=== PATIENT | male | born 1990 | race Caucasian/White ===

== ENCOUNTER 2017-01-12 22:08 | Inpatient (IN) | payer SELFPAY ==
[~2017-01-12] VITALS: Ht 172.7 cm; Wt 90.8 kg
[2017-01-12 21:50] VITALS: O2SAT 94
[2017-01-12 22:10] VITALS: O2SAT 100; O2SAT 92
[2017-01-12] MEDS ORDERED: NALOXONE HCL 2 MG/2 ML VIAL ONE ×2 (22:10→22:40)
[2017-01-12] MEDS ORDERED: ETOMIDATE 20 MG/10 ML VIAL ONE (22:11)
[2017-01-12] MEDS ORDERED: ROCURONIUM INJ 50 MG/5 ML VIAL ONE ×2 (22:11→22:17)
[2017-01-12 22:20] VITALS: BP 162/72; PULSE 154; RESP 3; TEMP 98.7; O2SAT 30
[2017-01-12 22:28] VITALS: PULSE 125; RESP 12; O2SAT 90
[2017-01-12] MEDS ORDERED: NALOXONE HCL 0.4 MG/ML AMP ONE (22:40)
[2017-01-12 22:50] VITALS: O2SAT 94
[2017-01-12] MEDS ORDERED: SODIUM CHLOR 0.9% 1000 ML INJ 1,000 ML IV SCH (23:01)
--- NOTE | 2017-01-12 23:04 | RADRPT ---
EXAM DATE/TIME: 01/12/2017 22:45 [place] COMPARISON: No previous studies available for comparison. INDICATIONS : Short of breath. MEDICAL HISTORY : None. SURGICAL HISTORY : None. ENCOUNTER: Initial ACUITY: 1 day PAIN SCORE: Non-responsive. LOCATION: Bilateral chest FINDINGS: A single view of the chest demonstrates the lungs to be symmetrically aerated without evidence of mas s, infiltrate or effusion. The cardiomediastinal contours are unremarkable. Osseous structures are intact. CONCLUSION: 1. No acute findings. Incidental azygos fissure. Ac Jara MD on January 12, 2017 at 23:02 Board Certified Radiologist. This report was verified electronically.
[2017-01-12 23:08] LABS: AUTOMATED NEUTROPHIL # 13.7 TH/MM3 (1.8-7.7); BASOPHIL # 0.1 TH/MM3 (0-0.2); BASOPHIL % 0.2 % (0.0-2.0); EOSINOPHIL # 0.2 TH/MM3 (0-0.4); EOSINOPHIL % 0.6 % (0.0-4.0); HEMATOCRIT 47.9 % (39.0-51.0); LYMPH % 38.8 % (9.0-44.0); LYMPHOCYTE # 10.3 TH/MM3 (1.0-4.8); MEAN CELL VOLUME 94.9 FL (80.0-100.0); MEAN CORPUSCULAR HEMOGLOBIN 32.6 PG (27.0-34.0); MEAN CORPUSCULAR HGB CONC 34.4 % (32.0-36.0); NEUT % 51.4 % (16.0-70.0); PLATELET COUNT 452 TH/MM3 (150-450); RED BLOOD COUNT 5.05 MIL/MM3 (4.50-5.90); WHITE BLOOD COUNT 26.6 TH/MM3 (4.0-11.0)
[2017-01-12 23:09] LABS: HEMO FLAGS AUTO DIFF
[2017-01-12] MEDS ORDERED: PANTOPRAZOLE INJ 80 MG in SODIUM CHLORIDE 0.9% INJ 100 ML IV SCH (23:15)
[2017-01-12] MEDS ORDERED: ONDANSETRON HCL 4 MG/2 ML VIAL IVP ONE (23:15)
[2017-01-12] MEDS ORDERED: PANTOPRAZOLE INJ 80 MG in SODIUM CHLORIDE 0.9% INJ 35 ML IV ONE (23:15)
[2017-01-12 23:17] LABS: APTT (PATIENT) 25.4 SEC (24.3-30.1); INTERNATIONAL NORMALIZED RATIO 1.1 RATIO; PROTHROMBIN TIME - PATIENT 11.8 SEC (9.8-11.6)
[2017-01-12 23:25] LABS: ANION GAP 12 MEQ/L (5-15); BICARBONATE 27.7 MEQ/L (21.0-32.0); BLOOD UREA NITROGEN 11 MG/DL (7-18); CHLORIDE 100 MEQ/L (98-107); GLOMERULAR FILTRATION RATE 35 ML/MIN (>89); POTASSIUM 3.5 MEQ/L (3.5-5.1); SODIUM (NA) 140 MEQ/L (136-145)
[2017-01-12 23:27] LABS: BLOOD GAS BASE EXCESS 0.7 mmol/L (-2-2); BLOOD GAS CARBOXYHEMOGLOBIN 4.5 % (0-4); BLOOD GAS HCO3 26 mmol/L (22-26); BLOOD GAS METHEMOGLOBIN 0.6 % (0-2); BLOOD GAS O2 HGB SATURATION 87 % (90-100); BLOOD GAS OXYGEN CONTENT 19.5 Vol % (12.0-20.0); BLOOD GAS PCO2 47 mmHg (38-42); BLOOD GAS PO2 63 mmHG (61-120); BLOOD GAS TOTAL HGB 15.9 G/DL (12.0-16.0); TEMP CORR TO 98.6
[2017-01-12 23:28] LABS: CRITICAL VALUE YES; DRAW SITE RT RADIAL; LITER FLOW 2 L/M; NUMBER OF ARTERIAL PUNCTURES 1; OXYGEN DEVICE NASAL CANNULA; STAT YES; ULNAR PULSE PRESENT
--- NOTE | 2017-01-12 23:36 | PD ---
HPI Chief Complaint: OD/ Ingestion Time Seen by Provider: 22:24 Travel History International Travel<30 days: No Contact w/Intl Traveler<30days: No Traveled to known affect area: No History of Present Illness HPI Young male was dropped off with agonal breathing and unresponsive. As we were preparing to intubate the patient, we gave narcan 2mg IV and pt responded and woke up. Pt admits to injecting heroin and does not know how much he did. Denies any complaints currently but states he has been sick recently. Pt found to vomit dark vomitus and it was hemaprompt positive. [facility] Past Medical History Medical History: Denies Significant Hx Diminished Hearing: No Past Surgical History Surgical History: No Previous Surgery Social History Alcohol Use: No Tobacco Use: Yes Substance Use: Yes (HEROIN) Allergies-Medications (Allergen,Severity, Reaction): Coded Allergies: No Known Allergies (Unverified , 01/12/17) Review of Systems Except as stated in HPI: all other systems reviewed are Neg Physical Exam Narrative GENERAL: Young male initially cyanotic and hypoxic but woke up with narcan. SKIN: Focused skin assessment warm/dry. HEAD: Atraumatic. Normocephalic. EYES: Pupils equal and round. EOMI. No scleral icterus. No injection or drainage. ENT: No nasal bleeding or discharge. Mucous membranes pink and moist. NECK: Trachea midline. No JVD. CARDIOVASCULAR: Regular rate and rhythm. No murmur appreciated. RESPIRATORY: No accessory muscle use. Clear to auscultation. Breath sounds equal bilaterally. GASTROINTESTINAL: Abdomen soft, non-tender, nondistended. No rebound tenderness or guarding. MUSCULOSKELETAL: No obvious deformities. No clubbing. No cyanosis. No edema. NEUROLOGICAL: Awake and alert. No obvious cranial nerve deficits. Motor grossly within normal limits. Normal speech. PSYCHIATRIC: Appropriate mood and affect; insight and judgment normal. Data Data Last Documented VS Vital Signs Date Time Temp Pulse Resp B/P Pulse Ox O2 Delivery O2 Flow Rate FiO2 01/13/17 01:20 102 24 118/60 95 Nasal Cannula 2 01/12/17 22:20 98.7 01/12/17 22:10 100 Orders Naloxone Inj (Narcan Inj) (01/12/17 22:10) Etomidate Inj (Amidate Inj) (01/12/17 22:11) Rocuronium Inj (Zemuron Inj) (01/12/17 22:11) Rocuronium Inj (Zemuron Inj) (01/12/17 22:17) Chest, Single Ap (01/12/17 ) Naloxone Inj (Narcan Inj) (01/12/17 22:40) Naloxone Inj (Narcan Inj) (01/12/17 22:40) Basic Metabolic Panel (Bmp) (01/12/17 22:43) Complete Blood Count With Diff (01/12/17 22:43) Lipase (01/12/17 22:43) Prothrombin Time / Inr (Pt) (01/12/17 22:43) Act Partial Throm Time (Ptt) (01/12/17 22:43) Alcohol (Ethanol) (01/12/17 22:43) Type And Screen (01/12/17 22:43) Ecg Monitoring (01/12/17 22:43) Iv Access Insert/Monitor (01/12/17 22:43) Oximetry (01/12/17 22:43) Ondansetron Inj (Zofran Inj) (01/12/17 23:15) Sodium Chlor 0.9% 1000 Ml Inj (Ns 1000 M (01/12/17 23:01) Pantoprazole Inj (Protonix Inj) (01/12/17 23:15) Pantoprazole Inj (Protonix Inj) (01/12/17 23:15) Electrocardiogram (01/12/17 ) Arterial Blood Gas (Abg) (01/12/17 ) Naloxone Inj (Narcan Inj) (01/12/17 23:45) Naloxone Inj (Narcan Inj) (01/12/17 23:45) Naloxone Inj (Narcan Inj) (01/12/17 23:45) Admit To Inpatient (01/13/17 ) Code Status (01/13/17 00:29) Vital Signs (Adult) LAWANDA.Q1H (01/13/17 00:29) ^ Elevate Head Of Bed (01/13/17 00:29) Activity Oob With Assistance (01/13/17 00:29) Neuro Checks . ORDERED (01/13/17 00:29) Intake + Output Q1H (01/13/17 00:29) Diet Npo (01/13/17 Breakfast) Sodium Chlor 0.9% 1000 Ml Inj (Ns 1000 M (01/13/17 00:29) Sodium Chloride 0.9% Flush (Ns Flush) (01/13/17 00:30) Sodium Chloride 0.9% Flush (Ns Flush) (01/13/17 09:00) Acetaminophen (Tylenol) (01/13/17 00:30) Morphine Inj (Morphine Inj) (01/13/17 00:30) Pantoprazole Inj (Protonix Inj) (01/13/17 00:30) Lorazepam Inj (Ativan Inj) (01/13/17 00:30) Ondansetron Inj (Zofran Inj) (01/13/17 00:30) Metoclopramide Inj (Reglan Inj) (01/13/17 00:30) Docusate Sodium (Colace) (01/13/17 09:00) Albuterol-Ipratropium Neb (Duoneb Neb) (01/13/17 00:30) Complete Blood Count With Diff (01/14/17 04:00) Comprehensive Metabolic Panel (01/14/17 04:00) Creatine Kinase (Cpk) (01/13/17 00:29) Magnesium (Mg) (01/14/17 04:00) Phosphorus (Po4) (01/14/17 04:00) Lactic Acid (01/14/17 04:00) Chest, Single Ap (01/14/17 ) Pt Request For Service (01/13/17 00:29) Consult Gastroenterology (01/13/17 ) Advanced Registered Nurse / Telemetry LAWANDA.Q8H (01/13/17 00:29) Scd Bilateral/Knee High LAWANDA.BID (01/13/17 00:29) Forrest Bilateral/Knee High LAWANDA.QSHIFT (01/13/17 00:29) ^ Initiate Protocol (01/13/17 00:29) ^ Instruction (01/13/17 00:29) Misc Nursing Information (01/13/17 00:30) Chlorhexidine 2% Cloth (Chlorhexidine 2% (01/13/17 04:00) Chlorhexidine 2% Cloth (Chlorhexidine 2% (01/13/17 00:30) Mrsa Pcr Surveillance (01/13/17 00:29) Inpatient Certification (01/13/17 ) Pantoprazole Inj (Protonix Inj) (01/13/17 01:00) Pantoprazole Inj (Protonix Inj) (01/13/17 12:00) Pantoprazole Inj (Protonix Inj) (01/13/17 11:00) Consult Hospitalist (01/13/17 ) CKMB (01/12/17 22:09) CKMB% (01/12/17 22:09) Admit Order (Ed Use Only) (01/13/17 01:23) Labs Laboratory Tests Test 01/12/17 01/12/17 01/13/17 22:09 23:05 00:15 White Blood Count 26.6 TH/MM3 Red Blood Count 5.05 MIL/MM3 Hemoglobin 16.5 GM/DL Hematocrit 47.9 % Mean Corpuscular Volume 94.9 FL Mean Corpuscular Hemoglobin 32.6 PG Mean Corpuscular Hemoglobin 34.4 % Concent Red Cell Distribution Width 12.0 % Platelet Count 452 TH/MM3 Mean Platelet Volume 8.9 FL Neutrophils (%) (Auto) 51.4 % Lymphocytes (%) (Auto) 38.8 % Monocytes (%) (Auto) 9.0 % Eosinophils (%) (Auto) 0.6 % Basophils (%) (Auto) 0.2 % Neutrophils # (Auto) 13.7 TH/MM3 Lymphocytes # (Auto) 10.3 TH/MM3 Monocytes # (Auto) 2.4 TH/MM3 Eosinophils # (Auto) 0.2 TH/MM3 Basophils # (Auto) 0.1 TH/MM3 CBC Comment AUTO DIFF Differential Total Cells 100 Counted Neutrophils % (Manual) 57 % Lymphocytes % 26 % Monocytes % 7 % Eosinophils % 2 % Basophils % 1 % Neutrophils # (Manual) 15.2 TH/MM3 Differential Comment FINAL DIFF MANUAL Atypical Lymphocytes 7 % Platelet Estimate HIGH Platelet Morphology Comment NORMAL Red Cell Morphology Comment NORMAL Prothrombin Time 11.8 SEC Prothromb Time International 1.1 RATIO Ratio Activated Partial 25.4 SEC Thromboplast Time Sodium Level 140 MEQ/L Potassium Level 3.5 MEQ/L Chloride Level 100 MEQ/L Carbon Dioxide Level 27.7 MEQ/L Anion Gap 12 MEQ/L Blood Urea Nitrogen 11 MG/DL Creatinine 1.69 MG/DL Estimat Glomerular Filtration 35 ML/MIN Rate Random Glucose 258 MG/DL Calcium Level 8.9 MG/DL Lipase 87 U/L Ethyl Alcohol Level LESS THAN 3 MG/DL Total Creatine Kinase 593 U/L Creatine Kinase MB 1.0 NG/ML Creatine Kinase MB % 0.2 % Blood Gas Puncture Site RT RADIAL Blood Gas Patient Temperature 98.6 Blood Gas HCO3 26 mmol/L Blood Gas Base Excess 0.7 mmol/L Blood Gas Oxygen Saturation 87 % Arterial Blood pH 7.35 Arterial Blood Partial 47 mmHg Pressure CO2 Arterial Blood Partial 63 mmHG Pressure O2 Arterial Blood Oxygen Content 19.5 Vol % Arterial Blood 4.5 % Carboxyhemoglobin Arterial Blood Methemoglobin 0.6 % Blood Gas Hemoglobin 15.9 G/DL Oxygen Delivery Device NASAL CANNULA Blood Gas Liter Flow 2 L/M Blood Type AB POSITIVE Antibody Screen NEGATIVE MDM Medical Decision Making Medical Screen Exam Complete: Yes Emergency Medical Condition: Yes Interpretation(s) EKG: Sinus tachycardia at 120bpm. Normal axis. No ST segment elevation or depression. Laboratory Tests Test 01/12/17 01/12/17 01/13/17 22:09 23:05 00:15 White Blood Count 26.6 TH/MM3 (4.0-11.0) Red Blood Count 5.05 MIL/MM3 (4.50-5.90) Hemoglobin 16.5 GM/DL (13.0-17.0) Hematocrit 47.9 % (39.0-51.0) Mean Corpuscular Volume 94.9 FL (80.0-100.0) Mean Corpuscular Hemoglobin 32.6 PG (27.0-34.0) Mean Corpuscular Hemoglobin 34.4 % Concent (32.0-36.0) Red Cell Distribution Width 12.0 % (11.6-17.2) Platelet Count 452 TH/MM3 (150-450) Mean Platelet Volume 8.9 FL (7.0-11.0) Neutrophils (%) (Auto) 51.4 % (16.0-70.0) Lymphocytes (%) (Auto) 38.8 % (9.0-44.0) Monocytes (%) (Auto) 9.0 % (0.0-8.0) Eosinophils (%) (Auto) 0.6 % (0.0-4.0) Basophils (%) (Auto) 0.2 % (0.0-2.0) Neutrophils # (Auto) 13.7 TH/MM3 (1.8-7.7) Lymphocytes # (Auto) 10.3 TH/MM3 (1.0-4.8) Monocytes # (Auto) 2.4 TH/MM3 (0-0.9) Eosinophils # (Auto) 0.2 TH/MM3 (0-0.4) Basophils # (Auto) 0.1 TH/MM3 (0-0.2) CBC Comment AUTO DIFF Differential Total Cells 100 Counted Neutrophils % (Manual) 57 % (16-70) Lymphocytes % 26 % (9-44) Monocytes % 7 % (0-8) Eosinophils % 2 % (0-4) Basophils % 1 % (0-2) Neutrophils # (Manual) 15.2 TH/MM3 (1.8-7.7) Differential Comment FINAL DIFF MANUAL Atypical Lymphocytes 7 % (0-0) Platelet Estimate HIGH (NORMAL) Platelet Morphology Comment NORMAL (NORMAL) Red Cell Morphology Comment NORMAL (NORMAL) Prothrombin Time 11.8 SEC (9.8-11.6) Prothromb Time International 1.1 RATIO Ratio Activated Partial 25.4 SEC Thromboplast Time (24.3-30.1) Sodium Level 140 MEQ/L (136-145) Potassium Level 3.5 MEQ/L (3.5-5.1) Chloride Level 100 MEQ/L (98-107) Carbon Dioxide Level 27.7 MEQ/L (21.0-32.0) Anion Gap 12 MEQ/L (5-15) Blood Urea Nitrogen 11 MG/DL (7-18) Creatinine 1.69 MG/DL (0.60-1.30) Estimat Glomerular Filtration 35 ML/MIN (>89) Rate Random Glucose 258 MG/DL (74-106) Calcium Level 8.9 MG/DL (8.5-10.1) Lipase 87 U/L (73-393) Ethyl Alcohol Level LESS THAN 3 MG/DL (0-5) Total Creatine Kinase 593 U/L (39-308) Creatine Kinase MB 1.0 NG/ML (0.5-3.6) Creatine Kinase MB % 0.2 % (0.0-4.0) Blood Gas Puncture Site RT RADIAL Blood Gas Patient Temperature 98.6 Blood Gas HCO3 26 mmol/L (22-26) Blood Gas Base Excess 0.7 mmol/L (-2-2) Blood Gas Oxygen Saturation 87 % (90-100) Arterial Blood pH 7.35 (7.380-7.420) Arterial Blood Partial 47 mmHg (38-42) Pressure CO2 Arterial Blood Partial 63 mmHG Pressure O2 (61-120) Arterial Blood Oxygen Content 19.5 Vol % (12.0-20.0) Arterial Blood 4.5 % (0-4) Carboxyhemoglobin Arterial Blood Methemoglobin 0.6 % (0-2) Blood Gas Hemoglobin 15.9 G/DL (12.0-16.0) Oxygen Delivery Device NASAL CANNULA Blood Gas Liter Flow 2 L/M Blood Type AB POSITIVE Antibody Screen NEGATIVE Last Impressions Chest X-Ray 01/12/17 0000 Signed Impressions: Service Date/Time: Thursday, January 12, 2017 22:45 - CONCLUSION: 1. No acute findings. Incidental azygos fissure. Ac Jaar MD Differential Diagnosis Heroin overdose vs. aspiration pneumonia vs. Upper GI bleed Narrative Course Young male initially unresponsive and cynotic. Pt noted to have some blood mixed with mucous in nose. Pt responded to narcan. Initially given 2mg, then 0.4mg then started pt on narcan drip. Pt states he feels better and denies any complaints after he woke up. Pt had dark vomit and I did hemaprompt which was positive for occult blood. Pt started on protonix drip. Denies any history of GI bleed. Labs reviewed, leukocytosis at 26.6. H/H 16.5/47.9. Creatinine 1.69. Blood alcohol negative. CXR showed no acute findings. Discussed with Dr. Maxwell and accepted. Critical Care Narrative Aggregate critical care time was 45 minutes. Time to perform other separately billable procedures was not included in the critical care time. My time did not include minutes spent treating any other patients simultaneously or on activities that did not directly contribute to the patient's treatment. The services I provided to this patient were to treat and/or prevent clinically significant deterioration that could result in: cardiovascular collapse or . I provided critical care services requiring my management, as noted below: Chart data review, documentation time, medication orders and management, vital sign assessments/reviewing monitor data, ordering and reviewing lab tests, ordering and interpreting/reviewing x-rays and diagnostic studies, care of the patient and discussion of the patient with the admitting physicians. Diagnosis Primary Impression: Heroin overdose Qualified Code: T40.1X1A - Heroin overdose, accidental or unintentional, initial encounter Additional Impression: GI bleed Qualified Code: K92.2 - Gastrointestinal hemorrhage, unspecified gastrointestinal hemorrhage type Admitting Information Admitting Physician Requests: Admit Ligia Mcintyre DO Jan 12, 2017 23:36
[2017-01-12 23:40] LABS: ATYPICAL LYMPHOCYTES 7 % (0-0); BASOPHILS 1 % (0-2); EOSINOPHILS 2 % (0-4); NEUTROPHIL # MANUAL DIFF 15.2 TH/MM3 (1.8-7.7); POLYS (SEG NEUTROPHILS) 57 % (16-70); WBC DIFF SAMPLE 100
[2017-01-12 23:41] LABS: SCAN/DIFF FINAL DIFF MANUAL
[2017-01-12 23:42] LABS: PLATELET ESTIMATE SMEAR HIGH (NORMAL); PLATELET MORPHOLOGY NORMAL (NORMAL)
[2017-01-12] MEDS ORDERED: NALOXONE IV SCH (23:45)
[2017-01-12] MEDS ORDERED: NALOXONE HCL 0.4 MG/ML AMP IV PUSH ONE (23:45)
[2017-01-12] MEDS ORDERED: NALOXONE HCL 2 MG/2 ML VIAL IV PUSH ONE (23:45)
[2017-01-12] MEDS ORDERED: SODIUM CHLOR 0.9% IV SCH (23:45)
[2017-01-13] VITALS (15 sets, daily range): BP systolic 102–133; BP diastolic 53–79; PULSE 72–102; RESP 14–24; TEMP 96.1–98.3; O2SAT 91–97
[2017-01-13] MEDS ORDERED: ONDANSETRON HCL 4 MG/2 ML VIAL IV PRN (00:30)
[2017-01-13] MEDS ORDERED: ACETAMINOPHEN 325 MG TAB PO PRN (00:30)
[2017-01-13] MEDS ORDERED: LORazepam 2 MG/ML VIAL IV PRN (00:30)
[2017-01-13] MEDS ORDERED: SODIUM CHLORIDE 0.9% FLUSH 10 ML FLUSH PRN (00:30)
[2017-01-13] MEDS ORDERED: MISCELLANEOUS NURSING INFORMATION XX SCH (00:30)
[2017-01-13] MEDS ORDERED: CHLORHEXIDINE GLUCONATE 2 % 1 PACK (2 CLOTHS) TOP PRN (00:30)
[2017-01-13] MEDS ORDERED: METOCLOPRAMIDE HCL 10 MG/2 ML VIAL IV PRN (00:30)
[2017-01-13] MEDS ORDERED: RESP: ALBUTEROL 2.5 MG/IPRATROPIUM 0.5 MG NEB (PRN) INH (00:30)
[2017-01-13] MEDS ORDERED: MORPHINE SULFATE 4 MG/ML INJ IV PRN (00:30)
[2017-01-13] MEDS ORDERED: PANTOPRAZOLE SODIUM 40 MG VIAL IV SCH ×4 (00:30→12:00)
--- NOTE | 2017-01-13 01:15 | HHI.HP ---
HPI Service Critical Care Medicine Primary Care Physician Unknown Admission Diagnosis Diagnosis: Travel History International Travel<30 Days: No Contact w/Intl Traveler <30 Da: No Traveled to Known Affected Are: No History of Present Illness Young male was dropped off with agonal breathing and unresponsive. After 2 mg of IV Narcan patient woke up and was started on Narcan drip in the ED. He also vomited multiple times with some bright red blood in her vomit. He doesn't have any medical history. Per patient this was the first time he was snorting heroine he usually snorts Colleen. Review of Systems Constitutional: DENIES: Diaphoretic episodes, Fatigue, Fever, Weight gain, Weight loss, Chills, Dizziness, Change in appetite, Night Sweats Endocrine: DENIES: Heat/cold intolerance, Polydipsia, Polyuria, Polyphagia Eyes: DENIES: Blurred vision, Diplopia, Eye inflammation, Eye pain, Vision loss , Photosensitivity, Double Vision Ears, nose, mouth, throat: DENIES: Tinnitus, Hearing loss, Vertigo, Nasal discharge, Oral lesions, Throat pain, Hoarseness, Ear Pain, Running Nose, Epistaxis, Sinus Pain, Toothache, Odynophagia Respiratory: DENIES: Apneas, Cough, Snoring, Wheezing, Hemoptysis, Sputum production, Shortness of breath Cardiovascular: DENIES: Chest pain, Palpitations, Syncope, Dyspnea on Exertion , PND, Lower Extremity Edema, Orthopnea, Claudication Gastrointestinal: DENIES: Abdominal pain, Black stools, Bloody stools, Constipation, Diarrhea, Nausea, Vomiting, Difficulty Swallowing, Anorexia Genitourinary: DENIES: Sexual dysfunction, Urinary frequency, Urinary incontinence, Urgency, Hematuria, Dysuria, Nocturia, Penile Discharge, Testicular Pain, Testicular Swelling Musculoskeletal: DENIES: Joint pain, Muscle aches, Stiffness, Joint Swelling, Back pain, Neck pain Integumentary: DENIES: Abnormal pigmentation, Nail changes, Pruritus, Rash Hematologic/lymphatic: DENIES: Bruising, Lymphadenopathy Immunologic/allergic: DENIES: Eczema, Urticaria Neurologic: DENIES: Abnormal gait, Headache, Localized weakness, Paresthesias, Seizures, Speech Problems, Tremor, Poor Balance Psychiatric: COMPLAINS OF: Anxiety, Confusion, Mood changes, Depression, Hallucinations, Agitation, Suicidal Ideation, Homicidal Ideation, Delusions Past Family Social History Allergies: Coded Allergies: No Known Allergies (Unverified , 01/12/17) Past Medical History Heroin abuse Past Surgical History None Active Ordered Medications Current Medications Medications (Trade) Dose Ordered Sig/Kamryn Route PRN Reason Start Time Stop Time Status Last Admin Dose Admin Naloxone HCl 4 mg/ Sodium Chloride 250 ml @ 0 mls/hr TITRATE IV 01/12/17 23:45 01/13/17 01:08 Sodium Chloride (NS 1000 ml Inj) 1,000 ml @ 184 mls/hr Q5H27M IV 01/13/17 00:29 Sodium Chloride (NS Flush) 2 ml UNSCH PRN .XX FLUSH AFTER USING IV ACCESS 01/13/17 00:30 Sodium Chloride (NS Flush) 2 ml BID .XX 01/13/17 09:00 Acetaminophen (Tylenol) 650 mg Q6H PRN PO PAIN 1-10 AND/OR FEVER >101F 01/13/17 00:30 Morphine Sulfate (Morphine Inj) 2 mg Q2H PRN IV PAIN SCALE 6 TO 10 01/13/17 00:30 Lorazepam (Ativan Inj) 1 mg Q1H PRN IV Agitation/Sedation 01/13/17 00:30 Ondansetron HCl (Zofran Inj) 4 mg Q6H PRN IV NAUSEA OR VOMITING 01/13/17 00:30 Metoclopramide HCl (Reglan Inj) 10 mg Q6H PRN IV NAUSEA OR VOMITING 01/13/17 00:30 Docusate Sodium (Colace) 100 mg BID PO 01/13/17 09:00 Miscellaneous Information 1 [id number] XX 01/13/17 00:30 Chlorhexidine Gluconate (Chlorhexidine 2% Cloth) 3 pack Taper DAILY@04 TOP 01/13/17 04:00 01/09/18 03:59 Chlorhexidine Gluconate (Chlorhexidine 2% Cloth) 3 pack UNSCH PRN TOP HYGIENIC CARE 01/13/17 00:30 Pantoprazole Sodium (Protonix Inj) 40 mg Q12H IV 01/13/17 11:00 Family History Noncontributory Social History Heroin abuse Narcotic abuse Negative for smoking or alcohol Physical Exam Vital Signs Vital Signs Date Time Temp Pulse Resp B/P Pulse Ox O2 Delivery O2 Flow Rate FiO2 01/12/17 22:50 94 Nasal Cannula 2 01/12/17 22:28 125 12 90 Nasal Cannula 6 01/12/17 22:20 98.7 154 3 162/72 30 01/12/17 22:10 100 15.00 100 01/12/17 22:10 92 Physical Exam GENERAL: Well-nourished, well-developed patient. No acute distress SKIN: Warm and dry. HEAD: Normocephalic. EYES: No scleral icterus. No injection or drainage. NECK: Supple, trachea midline. No JVD or lymphadenopathy. CARDIOVASCULAR: Regular rate and rhythm without murmurs, gallops, or rubs. RESPIRATORY: Breath sounds equal bilaterally. No accessory muscle use. GASTROINTESTINAL: Abdomen soft, non-tender, nondistended. MUSCULOSKELETAL: No cyanosis, or edema. BACK: Nontender without obvious deformity. No CVA tenderness. EXTREMITIES: Nonfocal clubbing cyanosis or edema Laboratory Laboratory Tests Test 01/12/17 01/12/17 22:09 23:05 White Blood Count 26.6 Red Blood Count 5.05 Hemoglobin 16.5 Hematocrit 47.9 Mean Corpuscular Volume 94.9 Mean Corpuscular Hemoglobin 32.6 Mean Corpuscular Hemoglobin 34.4 Concent Red Cell Distribution Width 12.0 Platelet Count 452 Mean Platelet Volume 8.9 Neutrophils (%) (Auto) 51.4 Lymphocytes (%) (Auto) 38.8 Monocytes (%) (Auto) 9.0 Eosinophils (%) (Auto) 0.6 Basophils (%) (Auto) 0.2 Neutrophils # (Auto) 13.7 Lymphocytes # (Auto) 10.3 Monocytes # (Auto) 2.4 Eosinophils # (Auto) 0.2 Basophils # (Auto) 0.1 CBC Comment AUTO DIFF Differential Total Cells 100 Counted Neutrophils % (Manual) 57 Lymphocytes % 26 Monocytes % 7 Eosinophils % 2 Basophils % 1 Neutrophils # (Manual) 15.2 Differential Comment FINAL DIFF MANUAL Atypical Lymphocytes 7 Platelet Estimate HIGH Platelet Morphology Comment NORMAL Red Cell Morphology Comment NORMAL Prothrombin Time 11.8 Prothromb Time International 1.1 Ratio Activated Partial 25.4 Thromboplast Time Sodium Level 140 Potassium Level 3.5 Chloride Level 100 Carbon Dioxide Level 27.7 Anion Gap 12 Blood Urea Nitrogen 11 Creatinine 1.69 Estimat Glomerular Filtration 35 Rate Random Glucose 258 Calcium Level 8.9 Lipase 87 Ethyl Alcohol Level LESS THAN 3 Blood Gas Puncture Site RT RADIAL Blood Gas Patient Temperature 98.6 Blood Gas HCO3 26 Blood Gas Base Excess 0.7 Blood Gas Oxygen Saturation 87 Arterial Blood pH 7.35 Arterial Blood Partial 47 Pressure CO2 Arterial Blood Partial 63 Pressure O2 Arterial Blood Oxygen Content 19.5 Arterial Blood 4.5 Carboxyhemoglobin Arterial Blood Methemoglobin 0.6 Blood Gas Hemoglobin 15.9 Oxygen Delivery Device NASAL CANNULA Blood Gas Liter Flow 2 Result Diagram: 01/12/17220801/12/172208 Assessment and Plan Assessment and Plan Encephalopathy - Due to heroin overdose - Continue Narcan drip as needed - IV hydration Hematemesis - Protonix 40 twice a day IV - GI consult - Most probably Jayashree-Taveras tear Heroin abuse - Monitor for withdrawal DVT GI prophylaxis - Teds SCDs - No pharmacal DVT prophylaxis due to hematemesis - Protonix twice a day Critical Care: The total critical care time was 35 minutes. Time to perform other separately billable procedures was not included in the critical care time. Vincenzo Maxwell MD Jan 13, 2017 01:15
[2017-01-13] MEDS ORDERED: CHLORHEXIDINE GLUCONATE 2 % 1 PACK (2 CLOTHS) TOP SCH (04:00)
[2017-01-13 08:20] LABS: BASOPHIL % 0.2 % (0.0-2.0); EOSINOPHIL % 0.4 % (0.0-4.0); HEMATOCRIT 38.8 % (39.0-51.0); HEMO FLAGS DIFF FINAL; LYMPH % 13.7 % (9.0-44.0); LYMPHOCYTE # 1.7 TH/MM3 (1.0-4.8); MEAN CELL VOLUME 92.1 FL (80.0-100.0); MEAN CORPUSCULAR HEMOGLOBIN 31.8 PG (27.0-34.0); MEAN CORPUSCULAR HGB CONC 34.5 % (32.0-36.0); MONO % 6.7 % (0.0-8.0); PLATELET COUNT 194 TH/MM3 (150-450); RED BLOOD COUNT 4.21 MIL/MM3 (4.50-5.90); RED CELL DISTRIBUTION WIDTH 11.8 % (11.6-17.2); WHITE BLOOD COUNT 12.6 TH/MM3 (4.0-11.0)
[2017-01-13 08:54] LABS: ANION GAP 6 MEQ/L (5-15); AST (GOT) 27 U/L (15-37); BICARBONATE 30.6 MEQ/L (21.0-32.0); BLOOD UREA NITROGEN 10 MG/DL (7-18); CHLORIDE 105 MEQ/L (98-107); GLOMERULAR FILTRATION RATE 58 ML/MIN (>89); MAGNESIUM 1.8 MG/DL (1.5-2.5); POTASSIUM 3.6 MEQ/L (3.5-5.1); SODIUM (NA) 142 MEQ/L (136-145)
[2017-01-13 08:57] LABS: ALKALINE PHOSPHATASE 68 U/L (45-117); ALT (GPT) 32 U/L (12-78); TOTAL BILIRUBIN ADULT 0.8 MG/DL (0.2-1.0)
[2017-01-13] MEDS: DOCUSATE SODIUM 100 MG CAP PO SCH ×2 (09:00→21:00)
[2017-01-13] MEDS ORDERED: SODIUM CHLORIDE 0.9% FLUSH 10 ML FLUSH SCH (09:00)
--- NOTE | 2017-01-13 09:31 | PD.CONS ---
HPI History of Present Illness This is a 26 year old male who was brought to the ER with agonal breathing and unresponsive. As they were preparing to intubate him in the ER, he was given Narcan and responded to this. When he became responsive, he admitted to injecting heroin yesterday. While in the ER, he had several episodes of vomiting with bright red blood mixed within this. The patient is now in the ICU on a Narcan drip. He states that he used heroin for the first time yesterday and his friend reported that 30 seconds after, passed out. He states that prior to using the Heroin, he ingested a large conrad slushy and he feels that he vomited the red slushy, not blood. He reports that he is no longer having nausea or vomiting and he denies any abdominal pain, bowel changes, melena, or hematochezia. He does occasionally have heartburn and reports that he did have this last night after persistent vomiting. He denies any hx of PUD or GI bleeding in the past. He denies the use of NSAIDs. (Shilpa Lamar) [facility] Past Medical History Polysubstance abuse Past Surgical History Denies (Shilpa Lamar) Coded Allergies: No Known Allergies (Unverified , 01/12/17) Medications Allergies Coded Allergies Type Severity Reaction Last Updated Verified No Known Allergies 01/12/17 No Family History Father has DM, CAD. Social History Smokes 1/2- 1 PPD. No ETOH. Polysubstance abuse. (Shilpa Lamar) Review of Systems Constitutional: DENIES: Fatigue, Weight loss Cardiovascular: DENIES: Chest pain Gastrointestinal: COMPLAINS OF: Nausea, Vomiting, Hematemesis (Questionable), DENIES: Abdominal pain, Black stools, Bloody stools, Constipation Musculoskeletal: COMPLAINS OF: Muscle aches Neurologic: DENIES: Headache Psychiatric: DENIES: Confusion (Shilpa Lamar) GI Exam Vitals I&O Vital Signs Date Time Temp Pulse Resp B/P Pulse Ox O2 Delivery O2 Flow Rate FiO2 01/13/17 06:00 99 01/13/17 04:32 96.1 81 18 129/79 96 01/13/17 04:00 99 01/13/17 02:38 98.3 102 16 133/68 91 01/13/17 02:00 99 01/13/17 01:20 102 24 118/60 95 Nasal Cannula 2 01/12/17 22:50 94 Nasal Cannula 2 01/12/17 22:28 125 12 90 Nasal Cannula 6 01/12/17 22:20 98.7 154 3 162/72 30 01/12/17 22:10 100 15.00 100 01/12/17 22:10 92 01/12/17 21:50 94 Nasal Cannula 2.00 I/O 01/12/17 01/12/17 01/12/17 01/13/17 01/13/17 01/13/17 07:00 15:00 23:00 07:00 15:00 23:00 Intake Total 757 ml Output Total 1000 ml 650 ml Balance -1000 ml 107 ml Intake IV Total 757 ml Output Urine Total 0 ml Emesis 1000 ml 650 ml Imaging Last Impressions Chest X-Ray 01/12/17 0000 Signed Impressions: Service Date/Time: Thursday, January 12, 2017 22:45 - CONCLUSION: 1. No acute findings. Incidental azygos fissure. Ac Jara MD Laboratory Test 01/12/17 01/12/17 01/13/17 01/13/17 22:09 23:05 00:15 02:30 White Blood Count 26.6 TH/MM3 Red Blood Count 5.05 MIL/MM3 Hemoglobin 16.5 GM/DL Hematocrit 47.9 % Mean Corpuscular Volume 94.9 FL Mean Corpuscular Hemoglobin 32.6 PG Mean Corpuscular Hemoglobin 34.4 % Concent Red Cell Distribution Width 12.0 % Platelet Count 452 TH/MM3 Mean Platelet Volume 8.9 FL Neutrophils (%) (Auto) 51.4 % Lymphocytes (%) (Auto) 38.8 % Monocytes (%) (Auto) 9.0 % Eosinophils (%) (Auto) 0.6 % Basophils (%) (Auto) 0.2 % Neutrophils # (Auto) 13.7 TH/MM3 Lymphocytes # (Auto) 10.3 TH/MM3 Monocytes # (Auto) 2.4 TH/MM3 Eosinophils # (Auto) 0.2 TH/MM3 Basophils # (Auto) 0.1 TH/MM3 CBC Comment AUTO DIFF Differential Total Cells 100 Counted Neutrophils % (Manual) 57 % Lymphocytes % 26 % Monocytes % 7 % Eosinophils % 2 % Basophils % 1 % Neutrophils # (Manual) 15.2 TH/MM3 Differential Comment FINAL DIFF MANUAL Atypical Lymphocytes 7 % Platelet Estimate HIGH Platelet Morphology Comment NORMAL Red Cell Morphology Comment NORMAL Prothrombin Time 11.8 SEC Prothromb Time International 1.1 RATIO Ratio Activated Partial 25.4 SEC Thromboplast Time Sodium Level 140 MEQ/L Potassium Level 3.5 MEQ/L Chloride Level 100 MEQ/L Carbon Dioxide Level 27.7 MEQ/L Anion Gap 12 MEQ/L Blood Urea Nitrogen 11 MG/DL Creatinine 1.69 MG/DL Estimat Glomerular Filtration 35 ML/MIN Rate Random Glucose 258 MG/DL Calcium Level 8.9 MG/DL Lipase 87 U/L Ethyl Alcohol Level LESS THAN 3 MG/DL Total Creatine Kinase 593 U/L Creatine Kinase MB 1.0 NG/ML Creatine Kinase MB % 0.2 % Blood Gas Puncture Site RT RADIAL Blood Gas Patient Temperature 98.6 Blood Gas HCO3 26 mmol/L Blood Gas Base Excess 0.7 mmol/L Blood Gas Oxygen Saturation 87 % Arterial Blood pH 7.35 Arterial Blood Partial 47 mmHg Pressure CO2 Arterial Blood Partial 63 mmHG Pressure O2 Arterial Blood Oxygen Content 19.5 Vol % Arterial Blood 4.5 % Carboxyhemoglobin Arterial Blood Methemoglobin 0.6 % Blood Gas Hemoglobin 15.9 G/DL Oxygen Delivery Device NASAL CANNULA Blood Gas Liter Flow 2 L/M Blood Type AB POSITIVE Antibody Screen NEGATIVE Nasal Screen MRSA (PCR) NEGATIVE Test 01/13/17 08:00 White Blood Count 12.6 TH/MM3 Red Blood Count 4.21 MIL/MM3 Hemoglobin 13.4 GM/DL Hematocrit 38.8 % Mean Corpuscular Volume 92.1 FL Mean Corpuscular Hemoglobin 31.8 PG Mean Corpuscular Hemoglobin 34.5 % Concent Red Cell Distribution Width 11.8 % Platelet Count 194 TH/MM3 Mean Platelet Volume 7.9 FL Neutrophils (%) (Auto) 79.0 % Lymphocytes (%) (Auto) 13.7 % Monocytes (%) (Auto) 6.7 % Eosinophils (%) (Auto) 0.4 % Basophils (%) (Auto) 0.2 % Neutrophils # (Auto) 10.0 TH/MM3 Lymphocytes # (Auto) 1.7 TH/MM3 Monocytes # (Auto) 0.8 TH/MM3 Eosinophils # (Auto) 0.0 TH/MM3 Basophils # (Auto) 0.0 TH/MM3 CBC Comment DIFF FINAL Differential Comment Sodium Level 142 MEQ/L Potassium Level 3.6 MEQ/L Chloride Level 105 MEQ/L Carbon Dioxide Level 30.6 MEQ/L Anion Gap 6 MEQ/L Blood Urea Nitrogen 10 MG/DL Creatinine 1.10 MG/DL Estimat Glomerular Filtration 58 ML/MIN Rate Random Glucose 104 MG/DL Calcium Level 8.2 MG/DL Magnesium Level 1.8 MG/DL Total Bilirubin 0.8 MG/DL Aspartate Amino Transf 27 U/L (AST/SGOT) Alanine Aminotransferase 32 U/L (ALT/SGPT) Alkaline Phosphatase 68 U/L Total Protein 6.3 GM/DL Albumin 3.5 GM/DL Physical Examination HEENT: Normocephalic; atraumatic; no jaundice. Throat is clear. NECK: Neck is supple, no JVD, no lymphadenopathy. CHEST: CTA CARDIAC: RRR ABDOMEN: Soft, nondistended, nontender; no hepatosplenomegaly; bowel sounds are present in all four quadrants. EXTREMITIES: No clubbing, cyanosis, or edema. SKIN: Normal; no rash; no jaundice. CHEMICAL PACKAGER: No focal deficits; alert and oriented times three. (Shilpa Lamar) Assessment and Plan Plan ASSESSMENT: - N/V, ? Hematemesis. Pt was brought in unresponsive as drug overdose on heroin. He responded to Narcan and is now alert and oriented on Narcan gtt. He states that he had just ingested a large conrad slushy prior to using heroin and that he vomited this not blood. According to the EMR, he had several episodes of vomiting with bright red blood mixed within his emesis. He has not had any further vomiting since arriving to floor. He reports some GERD, but otherwise denies any GI symptoms. D/W patient further evaluation with EGD. Pt is hesitant and reports that he may leave [facility] because he is "not even supposed to be in [facility]" and is supposed to meet his bank officer today. He states he is concerned that they will find out about this admission. PPI. NPO. Plan for EGD today- pt considering. HH 16.5/47.9----> 13.4/38.8. - Leukocytosis, improved. - Heroin OD. S/P Narcan. Now on Narcan gtt. Per [facility]. PLAN: - Plan for EGD today if patient agreeable - Obtain consents - NPO - PPI - Monitor HH - Transfuse as necessary - Supportive care - Further recommendations to follow based on results of above - Pt seen and examined by Dr. Hernández and myself and this note is written on his behalf (Shilpa Lamar) Physician Comments Patient seen and examined Agree with above Continue with current supportive care Plan for an EGD today (Wu Hernández MD) Shilpa Lamar Jan 13, 2017 09:31 Wu Hernández MD Jan 13, 2017 17:27
[2017-01-13] MEDS: SODIUM CHLOR 0.9% 1000 ML INJ 1,000 ML IV SCH ×3 (12:55→22:17)
[2017-01-13] MEDS ORDERED: PROPOFOL 200 MG/20 ML AMP IV ONE (16:45)
--- NOTE | 2017-01-13 17:25 | GIPROC ---
[facility] [address] [facility]. [facility], [address] EGD PROCEDURE REPORT EXAM DATE: 01/13/2017 PATIENT NAME: Nikhil Alcala MR #: [id number] BIRTHDATE: 1990 ATTENDING: Wu Hernández MD ORDER #: [id number] PROFESSIONAL DRIVER: Preeti Aguilar and Khushi Jones STATUS: inpatient INDICATIONS: The patient is a 26 yr old male here for an EGD due to hematemesis PROCEDURE PERFORMED: EGD w/ biopsy MEDICATIONS: Per Anesthesia and None. TOPICAL ANESTHETIC: CONSENT: The patient understands the risks and benefits of the procedure and understands that these risks include, but are not limited to: sedation, allergic reaction, infection, perforation and/or bleeding. Alternative means of evaluation and treatment include, among others: physical exam, x-rays, and/or surgical intervention. The patient elects to proceed with this endoscopic procedure. medical equipment was checked for proper function. Hand hygiene and appropriate measures for infection prevention was taken. After the risks, benefits and alternatives of the procedure were thoroughly explained, Informed consent was verified, confirmed and timeout was successfully executed by the treatment team. The patient was anesthetized with topical anesthesia and the Pentax EG-[id number] endoscope was introduced through the mouth and advanced to the second portion of the duodenum. Retroflexed views revealed no abnormalities The gastroscope was then slowly withdrawn and removed. The endoscopy was otherwise normal. ESOPHAGUS: Two small non-bleeding, linear, shallow and clean-based ulcers were found at the gastroesophageal junction. Biopsies were taken at edge of the ulcers. ADVERSE EVENTS: There were no complications. IMPRESSIONS: 1. Normal endoscopy otherwise 2. Two small ulcers were found at the gastroesophageal junction; biopsies were taken 3. Retroflexed views revealed no abnormalities RECOMMENDATIONS: 1. Await biopsy results. Biopsy results will not be ready for 7-10 days. If you don't hear from us in two weeks, call our office for biopsy results. 2. Anti-reflux regimen 3. Start PPI 4. Follow-up: GI clinic 4 week(s) PATIENT CONDITION: stable DISPOSITION: Inpatient REPEAT EXAM: Wu Hernández MD eSigned: Wu Hernández MD 01/13/2017 5:25 PM cc: PATIENT NAME: Nikhil Alcala MR#: [id number]
[2017-01-13] MEDS ORDERED: DO NOT ADM ANY ANTICOAGULANT DRUGS XX PRN (17:30)
--- NOTE | 2017-01-13 21:30 | EKG ---
Date Performed: 01/12/2017 Time Performed: 23:23:18 PTAGE: 89 years EKG: SINUS TACHYCARDIA NONSPECIFIC T-WAVE ABNORMALITY ABNORMAL RHYTHM ECG NO PREVIOUS TRACING DOCTOR: Umu Martinez Interpretating Date/Time 01/13/2017 21:29:46
[2017-01-14] VITALS (8 sets, daily range): BP systolic 116–122; BP diastolic 59–64; PULSE 65–119; RESP 14–20; TEMP 97.9–98.2; O2SAT 94–98
[2017-01-14 04:31] LABS: AUTOMATED NEUTROPHIL # 6.9 TH/MM3 (1.8-7.7); BASOPHIL % 0.2 % (0.0-2.0); EOSINOPHIL # 0.2 TH/MM3 (0-0.4); EOSINOPHIL % 1.8 % (0.0-4.0); HEMATOCRIT 38.3 % (39.0-51.0); LYMPH % 27.4 % (9.0-44.0); LYMPHOCYTE # 2.9 TH/MM3 (1.0-4.8); MEAN CELL VOLUME 91.4 FL (80.0-100.0); MEAN CORPUSCULAR HEMOGLOBIN 32.9 PG (27.0-34.0); MONO % 5.9 % (0.0-8.0); NEUT % 64.7 % (16.0-70.0); PLATELET COUNT 215 TH/MM3 (150-450); RED CELL DISTRIBUTION WIDTH 11.9 % (11.6-17.2); WHITE BLOOD COUNT 10.6 TH/MM3 (4.0-11.0)
[2017-01-14 04:40] LABS: HEMO FLAGS AUTO DIFF
[2017-01-14 04:54] LABS: ALKALINE PHOSPHATASE 68 U/L (45-117); ALT (GPT) 29 U/L (12-78); ANION GAP 7 MEQ/L (5-15); AST (GOT) 20 U/L (15-37); BICARBONATE 29.1 MEQ/L (21.0-32.0); BLOOD UREA NITROGEN 8 MG/DL (7-18); CHLORIDE 108 MEQ/L (98-107); GLOMERULAR FILTRATION RATE 89 ML/MIN (>89); MAGNESIUM 1.9 MG/DL (1.5-2.5); POTASSIUM 3.6 MEQ/L (3.5-5.1); SODIUM (NA) 144 MEQ/L (136-145); TOTAL BILIRUBIN ADULT 0.5 MG/DL (0.2-1.0)
[2017-01-14 05:34] LABS: SCAN/DIFF AUTO DIFF CONFIRMED
--- NOTE | 2017-01-14 06:25 | RADRPT ---
EXAM DATE/TIME: 01/14/2017 04:19 [place] COMPARISON: No previous studies available for comparison. INDICATIONS : Shortness of breath. MEDICAL HISTORY : None. SURGICAL HISTORY : None. ENCOUNTER: Subsequent ACUITY: 3 days PAIN SCORE: 4/10 LOCATION: Bilateral chest FINDINGS: A single view of the chest demonstrates the lungs to be symmetrically aerated without evidence of mas s, infiltrate or effusion. Mild basilar atelectasis. The cardiomediastinal contours are unremarkable . Osseous structures are intact. CONCLUSION: Mild basilar atelectasis. Ac Jara MD on January 14, 2017 at 6:23 Board Certified Radiologist. This report was verified electronically.
[2017-01-14] MEDS: DOCUSATE SODIUM 100 MG CAP PO SCH (09:00)
[2017-01-14] MEDS ORDERED: PANTOPRAZOLE SOD 40 MG DELAYED RELEASE TAB PO SCH (09:00)
--- NOTE | 2017-01-14 11:14 | HHI.GIFU ---
Subjective Remarks Resting in bed. No n/v. Tolerating diet. No active bleeding. (Shilpa Lamar) Objective Vitals I&O Vital Signs Date Time Temp Pulse Resp B/P Pulse Ox O2 Delivery O2 Flow Rate FiO2 01/14/17 10:00 119 01/14/17 08:00 91 01/14/17 06:00 86 01/14/17 04:00 86 01/14/17 04:00 98.2 86 16 120/64 94 01/14/17 02:00 65 01/14/17 00:00 65 01/14/17 00:00 98.0 81 14 122/59 96 01/13/17 22:00 97 01/13/17 20:00 98.0 92 16 115/61 96 01/13/17 20:00 92 01/13/17 18:00 85 01/13/17 17:30 98.1 85 12 112/59 96 Nasal Cannula 2 01/13/17 17:15 93 12 112/59 96 Nasal Cannula 2 01/13/17 17:00 85 12 111/58 97 Nasal Cannula 2 01/13/17 16:58 98.1 74 12 118/63 94 Nasal Cannula 2 01/13/17 16:00 85 01/13/17 16:00 85 21 114/59 96 01/13/17 14:00 83 01/13/17 12:00 72 01/13/17 12:00 72 14 102/53 96 I/O 01/13/17 01/13/17 01/13/17 01/14/17 01/14/17 01/14/17 07:00 15:00 23:00 07:00 15:00 23:00 Intake Total 757 ml 1085 ml 1785 ml 1085 ml Output Total 650 ml 850 ml 1450 ml 700 ml Balance 107 ml 235 ml 335 ml 385 ml Intake Oral 350 ml 100 ml IV Total 757 ml 1085 ml 1335 ml 985 ml Other 100 ml Output Urine Total 0 ml 850 ml 1450 ml 700 ml Emesis 650 ml # Voids 2 2 Laboratory Laboratory Tests Test 01/14/17 01/14/17 03:51 03:59 White Blood Count 10.6 Red Blood Count 4.20 Hemoglobin 13.8 Hematocrit 38.3 Mean Corpuscular Volume 91.4 Mean Corpuscular Hemoglobin 32.9 Mean Corpuscular Hemoglobin 36.0 Concent Red Cell Distribution Width 11.9 Platelet Count 215 Mean Platelet Volume 8.3 Neutrophils (%) (Auto) 64.7 Lymphocytes (%) (Auto) 27.4 Monocytes (%) (Auto) 5.9 Eosinophils (%) (Auto) 1.8 Basophils (%) (Auto) 0.2 Neutrophils # (Auto) 6.9 Lymphocytes # (Auto) 2.9 Monocytes # (Auto) 0.6 Eosinophils # (Auto) 0.2 Basophils # (Auto) 0.0 CBC Comment AUTO DIFF Differential Comment AUTO DIFF CONFIRMED Sodium Level 144 Potassium Level 3.6 Chloride Level 108 Carbon Dioxide Level 29.1 Anion Gap 7 Blood Urea Nitrogen 8 Creatinine 1.03 Estimat Glomerular Filtration 89 Rate Random Glucose 95 Calcium Level 8.4 Phosphorus Level 3.4 Magnesium Level 1.9 Total Bilirubin 0.5 Aspartate Amino Transf 20 (AST/SGOT) Alanine Aminotransferase 29 (ALT/SGPT) Alkaline Phosphatase 68 Total Protein 6.1 Albumin 3.3 Lactic Acid Level 1.5 Imaging Last Impressions Chest X-Ray 01/14/17 0000 Signed Impressions: Service Date/Time: Thursday, January 14, 2017 04:19 - CONCLUSION: Mild basilar atelectasis. Ac Jara MD Physical Exam HEENT: Normocephalic; atraumatic; no jaundice. CHEST: Chest is clear to auscultation and percussion. CARDIAC: RRR ABDOMEN: Soft, nondistended, nontender; no hepatosplenomegaly; bowel sounds are present in all four quadrants. EXTREMITIES: No clubbing, cyanosis, or edema. SKIN: Normal; no rash; no jaundice. ETHICS MANAGER: No focal deficits; alert and oriented times three. (Shilpa Lamar [facility]) Assessment and Plan Plan ASSESSMENT: - N/V, ? Hematemesis. Pt was brought in unresponsive as drug overdose on heroin. He responded to Narcan and is now alert and oriented on Narcan gtt. He states that he had just ingested a large conrad slushy prior to using heroin and that he vomited this not blood. According to the EMR, he had several episodes of vomiting with bright red blood mixed within his emesis. He has not had any further vomiting since arriving to floor. He reports some GERD, but otherwise denies any GI symptoms. EGD (01/13/17)---> 1. Normal endoscopy otherwise 2. Two small ulcers were found at the gastroesophageal junction; biopsies were taken 3. Retroflexed views revealed no abnormalities. Pathology pending. No further bleeding. No n/v. HH stable. - Leukocytosis, improved. - Heroin OD. S/P Narcan. Off Narcan gtt. Per primary PLAN: - BETH - Await pathology - PPI - Monitor HH - No NSAIDs - FU YAMILA 4 weeks - Pt seen and examined by Dr. Hernández and myself and this note is written on his behalf (Shilpa Lamar) Physician Comments Patient seen and examined Agree with above Continue with current supportive care (Wu Hernández MD) Shilpa Lamar Jan 14, 2017 11:14 Wu Hernández MD Jan 14, 2017 19:50
[2017-01-14] MEDS ORDERED: PANT40TA3 PO (13:20)
[2017-01-14] MEDS ORDERED: VENTAER INH (13:20)
--- NOTE | 2017-01-14 13:22 | HHI.DCPOC ---
Discharge Care Plan Diagnosis: (1) GI bleed (2) Leukocytosis (3) Hypoxemia Goals to Promote Your Health * To prevent worsening of your condition and complications * To maintain your health at the optimal level Directions to Meet Your Goals Take your medications as prescribed Follow your dietary instruction Follow activity as directed Keep your appointments as scheduled Take your immunizations and boosters as scheduled If your symptoms worsen call your PCP, if no PCP go to Urgent Care Center or Emergency Room Smoking is Dangerous to Your Health. Avoid second hand smoke Call the 24-hour hour crisis hotline for domestic abuse at Nikhil Rodriguez DO Jan 14, 2017 13:22
--- NOTE | 2017-01-14 13:28 | HHI.PR ---
Subjective Remarks The patient was resting in bed comfortably. He was eating lunch. He said he felt well and wanted to go home. He said he slipped up by using the heroin and has not been using it for a long time [place] is [place] drug court. He does not drink alcohol but does smoke cigarettes. He has been ambulating. Discussed with nursing. Objective Vitals Vital Signs Date Time Temp Pulse Resp B/P Pulse Ox O2 Delivery O2 Flow Rate FiO2 01/14/17 10:00 119 01/14/17 08:00 91 01/14/17 06:00 86 01/14/17 04:00 86 01/14/17 04:00 98.2 86 16 120/64 94 01/14/17 02:00 65 01/14/17 00:00 65 01/14/17 00:00 98.0 81 14 122/59 96 01/13/17 22:00 97 01/13/17 20:00 98.0 92 16 115/61 96 01/13/17 20:00 92 01/13/17 18:00 85 01/13/17 17:30 98.1 85 12 112/59 96 Nasal Cannula 2 01/13/17 17:15 93 12 112/59 96 Nasal Cannula 2 01/13/17 17:00 85 12 111/58 97 Nasal Cannula 2 01/13/17 16:58 98.1 74 12 118/63 94 Nasal Cannula 2 01/13/17 16:00 85 01/13/17 16:00 85 21 114/59 96 01/13/17 14:00 83 I/O 01/13/17 01/13/17 01/13/17 01/14/17 01/14/17 01/14/17 07:00 15:00 23:00 07:00 15:00 23:00 Intake Total 757 ml 1085 ml 1785 ml 1085 ml Output Total 650 ml 850 ml 1450 ml 700 ml Balance 107 ml 235 ml 335 ml 385 ml Intake Oral 350 ml 100 ml IV Total 757 ml 1085 ml 1335 ml 985 ml Other 100 ml Output Urine Total 0 ml 850 ml 1450 ml 700 ml Emesis 650 ml # Voids 2 2 Result Diagram: 01/14/17 0351 01/14/17 0351 Imaging Last Impressions Chest X-Ray 01/14/17 0000 Signed Impressions: Service Date/Time: Saturday, January 14, 2017 04:19 - CONCLUSION: Mild basilar atelectasis. Ac Jara MD Objective Remarks GENERAL: Well-nourished, well-developed patient. No acute distress SKIN: Warm and dry. HEAD: Normocephalic. EYES: No scleral icterus. No injection or drainage. NECK: Supple, trachea midline. No JVD or lymphadenopathy. CARDIOVASCULAR: Tachycardic without murmurs, gallops, or rubs. RESPIRATORY: Mild wheezing bilaterally. No accessory muscle use. GASTROINTESTINAL: Abdomen soft, non-tender, nondistended. MUSCULOSKELETAL: No cyanosis, or edema. BACK: Nontender without obvious deformity. No CVA tenderness. EXTREMITIES: Nonfocal clubbing cyanosis or edema. PSYCH: Mood and affect appropriate. Medications and IVs Current Medications Medications (Trade) Dose Ordered Sig/Kamryn Route Start Time Stop Time Status Last Admin (NS 1000 ml Inj) 1,000 ml @ 184 mls/hr Q5H27M IV 01/13/17 00:29 01/13/17 12:55 (NS Flush) 2 ml UNSCH PRN .XX 01/13/17 00:30 (NS Flush) 2 ml BID .XX 01/13/17 09:00 (Tylenol) 650 mg Q6H PRN PO 01/13/17 00:30 (Morphine Inj) 2 mg Q2H PRN IV 01/13/17 00:30 (Ativan Inj) 1 mg Q1H PRN IV 01/13/17 00:30 (Zofran Inj) 4 mg Q6H PRN IV 01/13/17 00:30 01/13/17 06:30 (Reglan Inj) 10 mg Q6H PRN IV 01/13/17 00:30 (Colace) 100 mg BID PO 01/13/17 09:00 Miscellaneous Information 1 Q361D XX 01/13/17 00:30 (Chlorhexidine 2% Cloth) 3 pack Taper DAILY@04 TOP 01/13/17 04:00 01/09/18 03:59 01/13/17 04:00 (Chlorhexidine 2% Cloth) 3 pack UNSCH PRN TOP 01/13/17 00:30 Miscellaneous Information ALL NURSING DEPARTME... UNSCH PRN XX 01/13/17 17:30 01/14/17 17:29 (Protonix) 40 mg DAILY PO 01/14/17 09:00 01/14/17 09:49 (Duoneb Neb) 1 ampule ONCE ONCE NEB 01/14/17 13:30 01/14/17 13:31 A/P Assessment and Plan Encephalopathy Secondary to heroin overdose. - Narcan drip as needed. - IV hydration. - cessation instruction. - continue drug court. Hematemesis GI consult appreciated. EGD with two ulcers. - Protonix 40 twice a day IV - GI follow up as an outpt. - follow pathology. - PPI. - avoid NSAIDs. Wheezing The pt smokes about a pack daily. - cessation instruction. - albuterol inhaler upon discharge. Leukocytosis Reactive. - resolved. PPx: Teds, SCDs. Discharge Planning D/c home. Nikhil Rodriguez DO Jan 14, 2017 13:28
[2017-01-14] MEDS ORDERED: RESP: ALBUTEROL 2.5 MG/IPRATROPIUM 0.5 MG NEB (SCH) NEB ONE (13:30)
== END 2017-01-14 15:40 | disposition home or self-care (01) | DRG 917 ==
LOC: NEPA 22:08 → EDBD 01-13 01:25 → NEDA 01-13 01:25 → HIME 01-13 02:20
PROVIDERS: ADMIT Hospitalist; ATTEND Hospitalist
PROC: 0DB48ZX Excision of Esophagogastric Junction, Via Natural or Artificial Opening Endoscopic, Diagnostic (ICD-10-PCS; principal; 2017-01-13 16:15)
DX: T40.1X1A Poisoning by heroin, accidental (unintentional), initial encounter (principal); G93.40 Encephalopathy, unspecified; K92.0 Hematemesis; K25.9 Gastric ulcer, unspecified as acute or chronic, without hemorrhage or perforation; F11.10 Opioid abuse, uncomplicated; F17.210 Nicotine dependence, cigarettes, uncomplicated; R06.2 Wheezing
CPT/HCPCS: 36600; 71010; 80048; 80053; 80307; 82550; 82552; 82805; 83605; 83690; 83735; 84100; 85007; 85025; 85027; 85610; 85730; 86850; 86900; 86901; 87641; 88305; 93005; 96361; 96365; 96374; 96375; 96376; C9113; J2310; J2405; J7030; J7050